=== PATIENT | male | born 1980 | race Caucasian/White ===

== ENCOUNTER 2021-10-08 10:39 | Emergency (ER) | payer OTHER ==
[2021-10-08] MEDS ORDERED: BACTRIM DS TAB1 EACH PO (11:55)
[2021-10-08] MEDS ORDERED: HYDROCODON-ACE1 EAC4 PO (11:57)
[2021-10-08 11:59] LABS: BUN/CREATININE RATIO 8 (0-10)
== END 2021-10-08 12:16 | disposition home or self-care (01) ==
LOC: ER1 10:39
PROVIDERS: Nurse Practitioner
DX: L02.415 Cutaneous abscess of right lower limb (principal); L02.31 Cutaneous abscess of buttock; Z90.89 Acquired absence of other organs
CPT/HCPCS: 10060; 80053; 87070; 87205; 99283